=== PATIENT | female | born 1995 | race Caucasian/White ===

== ENCOUNTER → 2018-07-06 | Emergency (ER) | payer OTHER ==
[~2018-07-06] VITALS: Ht 154.9 cm; Wt 46.3 kg
== END | disposition home or self-care (01) ==
LOC: ER 15:50
DX: K52.89 Other specified noninfective gastroenteritis and colitis (principal); E86.0 Dehydration

== ENCOUNTER → 2019-08-28 | Outpatient (CLI) | payer OTHER | END | disposition home or self-care (01) | LOC: PRENATAL 11:00 | DX: O35.8XX1 Maternal care for other (suspected) fetal abnormality and damage, fetus 1 (principal) ==

== ENCOUNTER 2020-01-12 19:47 | Inpatient (IN) | payer OTHER ==
[~2020-01-12] VITALS: Ht 154.9 cm; Wt 2.3 kg
[2020-01-12] MEDS ORDERED: PRENATAL TABLE1 EACH PO (21:12)
== END 2020-01-15 13:51 | disposition home or self-care (01) | DRG 788 ==
LOC: OBS/DEL 19:47 → LDR 01-13 15:27 → OB/GYN 01-13 22:11
PROVIDERS: ADMIT Obstetrics & Gynecology
PROC: 4A1HXFZ Monitoring of Products of Conception, Cardiac Rhythm, External Approach (ICD-10-PCS; 2020-01-13)
PROC: 3E033VJ Introduction of Other Hormone into Peripheral Vein, Percutaneous Approach (ICD-10-PCS; 2020-01-13)
PROC: 10D00Z1 Extraction of Products of Conception, Low, Open Approach (ICD-10-PCS; principal; 2020-01-13 19:00)
DX: O42.02 Full-term premature rupture of membranes, onset of labor within 24 hours of rupture (principal); Z3A.38 38 weeks gestation of pregnancy; Z37.0 Single live birth